=== PATIENT | male | born 1940 | race Caucasian/White ===

== ENCOUNTER 2017-08-15 10:11 | Emergency (ER) | payer MEDICARE ==
--- NOTE | 2017-08-15 10:27 | RADIOLOGY REPORT (SQ) ---
EXAM DESCRIPTION: CT HEAD WITHOUT COMPLETED DATE/TIME: 08/15/2017 10:20 am REASON FOR STUDY: altered mental status COMPARISON: None. TECHNIQUE: Axial images acquired through the brain without intravenous contrast. Images reviewed wi th bone, brain and subdural windows. Images stored on PACS. All CT scanners at this facility use dose modulation, iterative reconstruction, and/or weight based d osing when appropriate to reduce radiation dose to as low as reasonably achievable (ALARA). [facility]: Dose Right [facility]: CareDose [facility]: Dose Right [facility]: Teradose 4D [facility]: [employer] RADIATION DOSE: CT Rad equipment meets quality standard of care and radiation dose reduction techniq ues were employed. CTDIvol: 64.6 mGy. DLP: 1163 mGy-cm. mGy. LIMITATIONS: None. FINDINGS: VENTRICLES: Prominent. CEREBRUM: No masses. No hemorrhage. No midline shift. Areas of low density in the white matter mos t likely due to chronic micro-vascular ischemic change. No evidence for acute infarction. CEREBELLUM: No masses. No hemorrhage. No alteration of density. No evidence for acute infarction. EXTRAAXIAL SPACES: Mild age-related involutional change. No fluid collections. No masses. ORBITS AND GLOBE: No intra- or extraconal masses. Normal contour of globe without masses. CALVARIUM: No fracture. PARANASAL SINUSES: No fluid or mucosal thickening. SOFT TISSUES: No mass or hematoma. OTHER: No other significant finding. IMPRESSION: MILD CHRONIC CHANGES OF ATROPHY AND MICROVASCULAR ISCHEMIA. NO ACUTE PROCESS. EVIDENCE OF ACUTE STROKE: NO. TECHNICAL DOCUMENTATION: JOB ID: [id number] Quality ID # [id number]: Final reports with documentation of one or more dose reduction techniques (e.g., Au tomated exposure control, adjustment of the mA and/or kV according to patient size, use of iterative reconstruction technique) 2010 [employer]- All Rights Reserved
[2017-08-15 10:53] LABS: ABSOLUTE EOSINOPHILS # (AUTO) 0.3 10^3/uL (0.0-0.6); ABSOLUTE LYMPHOCYTES (AUTO) 2.2 10^3/uL (0.5-4.7); BASOPHILS % (AUTO) 0.4 % (0-2); EOSINOPHILS % (AUTO) 2.7 % (0-6); HEMATOCRIT 43.3 % (37.9-51.0); HEMOGLOBIN 14.4 g/dL (13.5-17.0); HGB HCT DIFFERENCE -0.1; LYMPHOCYTES % (AUTO) 19.3 % (13-45); MEAN CORPUSCULAR HEMOGLOBIN 30.3 pg (27.0-33.4); MEAN CORPUSCULAR HGB CONC 33.3 g/dL (32.0-36.0); MEAN CORPUSCULAR VOLUME 91 fl (80-97); MONOCYTES % (AUTO) 8.6 % (3-13); RED BLOOD COUNT 4.77 10^6/uL (4.35-5.55); RED CELL DISTRIBUTION WIDTH 14.8 % (11.5-14.0); WHITE BLOOD COUNT 11.7 10^3/uL (4.0-10.5)
[2017-08-15 10:54] LABS: VENOUS BLOOD BASE EXCESS 2.9 mmol/L; VENOUS BLOOD HCO3 29.4 mmol/L (20-32); VENOUS BLOOD PCO2 52.7 mmHg (35-63); VENOUS BLOOD PH 7.37 (7.30-7.42)
[2017-08-15 11:02] LABS: PROTHROMBIN TIME 13.2 SEC (11.4-15.4)
[2017-08-15 11:03] LABS: APPEARANCE,URINE SLIGHTLY-CLOUDY; BILIRUBIN,URINE NEGATIVE (NEGATIVE); GLUCOSE, URINE NEGATIVE (NEGATIVE); KETONES,URINE NEGATIVE (NEGATIVE); LEUKOCYTE ESTERASE,URINE NEGATIVE (NEGATIVE); NITRITE,URINE NEGATIVE (NEGATIVE); PROTEIN,URINE 30 mg/dL (NEGATIVE)
[2017-08-15 11:08] LABS: ALANINE AMINOTRANSFERASE 38 U/L (21-72); ALKALINE PHOSPHATASE 59 U/L (38-126); ANION GAP 11 (5-19); ASPARTATE AMINO TRANSFERASE 22 U/L (17-59); BILIRUBIN,DIRECT 0.1 mg/dL (0.0-0.4); BILIRUBIN,TOTAL 0.3 mg/dL (0.2-1.3); BLOOD UREA NITROGEN 24 mg/dL (7-20); CALCIUM 9.3 mg/dL (8.4-10.2); CARBON DIOXIDE 29 mmol/L (22-30); CHLORIDE 100 mmol/L (98-107); CREATINE KINASE 136 U/L (55-170); CREATININE RESULT 1.19 mg/dL (0.52-1.25); GLUCOSE 165 mg/dL (75-110); SODIUM 139.5 mmol/L (137-145); TOTAL PROTEIN 6.5 g/dL (6.3-8.2)
[2017-08-15 11:20] LABS: CREATINE KINASE MB 1.08 ng/mL (<4.55)
[2017-08-15 11:22] LABS: TROPONIN I < 0.012 ng/mL
[2017-08-15 11:31] LABS: URINE BARBITURATES SCREEN NEGATIVE; URINE METHADONE SCREEN NEGATIVE; URINE OPIATES LOW NEGATIVE; URINE PHENCYCLIDINE SCREEN NEGATIVE
--- NOTE | 2017-08-15 11:43 | ER Document Report ---
ED General - General Chief Complaint: Altered Mental Status Stated Complaint: ALTERED MENTAL STATUS Time Seen by Provider: 08/15/17 10:13 Mode of Arrival: Medic Information source: Emergency Med Personnel Cannot obtain history due to: Altered mental status Notes: 76-year-old male presents from home unresponsive with EMS concern for stroke. Patient is noted to be minimally responsive family noted that patient was fine an hour prior to this presentation. On arrival patient is noted to be only responsive to painful stimuli TRAVEL OUTSIDE OF THE [place] IN LAST 30 DAYS: No - HPI Onset: Just prior to arrival Onset/Duration: Sudden Quality of pain: No pain Severity: Severe Pain Level: Denies Associated symptoms: Other Exacerbated by: Denies Relieved by: Denies Similar symptoms previously: No Recently seen / treated by doctor: No - Related Data Home Medications: Current Home Medications Allopurinol [Zyloprim 100 mg Tablet] 100 mg PO DAILY 08/15/17 [History] Alprazolam 0.5 mg PO DAILY PRN 08/15/17 [History] Aspirin [Aspirin 325 mg Tablet] 325 mg PO DAILY 08/15/17 [History] Bupropion HCl [Bupropion Xl] 150 mg PO DAILY 08/15/17 [History] Cyclobenzaprine HCl 5 mg PO TID 08/15/17 [History] Folic Acid 1 mg PO DAILY 08/15/17 [History] Methotrexate Sodium [Methotrexate] 2.5 mg PO DAILY 08/15/17 [History] Multivitamin [Daily Multiple Vitamin] 1 each PO DAILY 08/15/17 [History] Oxycodone HCl 5 mg PO Q6HP PRN 08/15/17 [History] Pantoprazole Sodium [Protonix] 40 mg PO DAILY 08/15/17 [History] Primidone [Mysoline 50 Mg Tablet] 50 mg PO HSP PRN 08/15/17 [History] Rosuvastatin Calcium 20 mg PO DAILY 08/15/17 [History] Past Medical History - Social History Smoking Status: Former Smoker Cigarette use (# per day): No Chew tobacco use (# tins/day): No Smoking Education Provided: No Frequency of alcohol use: Occasional Drug Abuse: Marijuana, Other Family History: Reviewed & Not Pertinent Patient has suicidal ideation: No Patient has homicidal ideation: No Renal/ Medical History: Denies: Hx Peritoneal Dialysis Review of Systems - Review of Systems Notes: REVIEW OF SYSTEMS: CONSTITUTIONAL : Denies fever, chills, or sweats. Denies recent illness. EENT: Denies eye, ear, throat, or mouth pain or symptoms. Denies nasal or sinus congestion or discharge. Denies throat, tongue, or mouth swelling or difficulty swallowing. CARDIOVASCULAR: Denies chest pain. Denies palpitations or racing or irregular heart beat. Denies ankle edema. RESPIRATORY: Denies cough, cold, or chest congestion. Denies shortness of breath, difficulty breathing, or wheezing. GASTROINTESTINAL: Denies abdominal pain or distention. Denies nausea, vomiting , or diarrhea. Denies blood in vomitus, stools, or per rectum. Denies black, tarry stools. Denies constipation. GENITOURINARY: Denies difficulty urinating, painful urination, burning, frequency, blood in urine, or discharge. MUSCULOSKELETAL: Denies back or neck pain or stiffness. Denies joint pain or swelling. SKIN: Denies rash, lesions or sores. HEMATOLOGIC : Denies easy bruising or bleeding. LYMPHATIC: Denies swollen, enlarged glands. NEUROLOGICAL: Patient minimally responsive PSYCHIATRIC: Denies anxiety or stress. Denies depression, suicidal ideation, or homicidal ideation. ALL OTHER SYSTEMS REVIEWED AND NEGATIVE. Dictation was performed using [employer] voice recognition software PHYSICAL EXAMINATION: GENERAL: Well-appearing, well-nourished and in no acute distress. GCS 9 HEAD: Atraumatic, normocephalic. EYES: Pupils equal round and reactive to light, extraocular movements intact, sclera anicteric, conjunctiva are normal. ENT: Nares patent, oropharynx clear without exudates. Moist mucous membranes. NECK: Normal range of motion, supple without lymphadenopathy LUNGS: Breath sounds clear to auscultation bilaterally and equal. No wheezes rales or rhonchi. HEART: Regular rate and rhythm without murmurs ABDOMEN: Soft, nontender, nondistended abdomen. No guarding, no rebound. No masses appreciated. Musculoskeletal: Normal range of motion, no pitting or edema. No cyanosis. NEUROLOGICAL: Patient initially only responsive to painful stimuli, sternal rub performs patient grabbed my hand PSYCH: Normal mood, normal affect. SKIN: Warm, Dry, normal turgor, no rashes or lesions noted. Physical Exam - Vital signs Vitals: Pulse 64 08/15/17 10:12 Course - Re-evaluation Re-evalutation: On arrival initial concern for a CVA or other encephalopathy causing abnormality. Patient was almost intubated but was protecting his airway at the painful stimuli was performed. CT emergently performed noted no acute abnormality patient will be watched 08/15/17 11:43 pt continues to be altered, responds to pain stimuli 08/15/17 11:56 Patient is now awake alert oriented, MRI has been ordered to rule out a CVA 08/15/17 16:49 Patient when he returns from MRI is completely alert oriented both he and admit that he took 3 drops ofCBD oil prior to presentation for tremors and has never done this before. Given that MRI lab work imaging otherwise is all negative and patient's symptoms have completely resolved I discussed presentation with who agrees that is probably secondary to this oil I will discharge home with very close follow-up After performing a Medical Screening Examination, I estimate there is LOW risk for ACUTE GLAUCOMA, TEMPORAL ARTERITIS, MENINGITIS, INCRANIAL HEMORRHAGE, or ISCHEMIC STROKE thus I consider the discharge disposition reasonable. I have reevaluated this patient multiple times and no significant life threatening changes are noted. The patient and I have discussed the diagnosis and risks, and we agree with discharging home with close follow-up with the understanding that symptoms and presentations can change. We also discussed returning to the Emergency Department immediately if new or worsening symptoms occur. We have discussed the symptoms which are most concerning (e.g., changing or worsening symptoms, new numbness or weakness, vomiting, fever) that necessitate immediate return. - Vital Signs Vital signs: Temp Pulse Resp BP Pulse Ox 75 17 102/72 96 08/15/17 14:15 08/15/17 14:15 08/15/17 14:15 08/15/17 14:15 - Laboratory Result Diagrams: 08/15/17 10:25 08/15/17 10:25 Laboratory results interpreted by me: 08/15/17 08/15/17 08/15/17 10:25 10:25 10:27 WBC 11.7 H RDW 14.8 H BUN 24 H Glucose 165 H POC Glucose 153 H Urine Protein Urine Urobilinogen Urine Ascorbic Acid 08/15/17 10:45 WBC RDW BUN Glucose POC Glucose Urine Protein 30 H Urine Urobilinogen 2.0 H Urine Ascorbic Acid 20 H - Diagnostic Test Radiology reviewed: Image reviewed, Reports reviewed - EKG Interpretation by Me EKG shows normal: Sinus rhythm, [place], Intervals, QRS Complexes Discharge - Discharge Clinical Impression: Altered mental status Qualifiers: Altered mental status type: unspecified Qualified Code(s): R41.82 - Altered mental status, unspecified Overdose Qualifiers: Encounter type: initial encounter Injury intent: accidental or unintentional Qualified Code(s): T50.901A - Poisoning by unspecified drugs, medicaments and biological substances, accidental (unintentional), initial encounter Condition: Stable Disposition: HOME, SELF-CARE Instructions: Instructions for Home Care Following a Drug Overdose ([facility]) Referrals: EDWIN BARRETT MD [Primary Care Provider] - Follow up tomorrow
--- NOTE | 2017-08-15 11:51 | RADIOLOGY REPORT (SQ) ---
EXAM DESCRIPTION: CHEST SINGLE VIEW COMPLETED DATE/TIME: 08/15/2017 11:43 am REASON FOR STUDY: AMS COMPARISON: None. NUMBER OF VIEWS: One view. TECHNIQUE: Single frontal radiographic view of the chest acquired. LIMITATIONS: None. FINDINGS: LUNGS AND PLEURA: Low lung volumes. No opacities, masses or pneumothorax. No pleural eff usion. MEDIASTINUM AND HILAR STRUCTURES: No masses. No contour abnormality. HEART AND VASCULAR STRUCTURES: Normal size. No evidence for failure. BONES: No acute findings. HARDWARE: None in the chest. OTHER: No other significant finding. IMPRESSION: LOW LUNG VOLUMES. NO SIGNIFICANT RADIOGRAPHIC FINDING IN THE CHEST. TECHNICAL DOCUMENTATION: JOB ID: [id number] [employer]- All Rights Reserved
--- NOTE | 2017-08-15 13:42 | RADIOLOGY REPORT (SQ) ---
EXAM DESCRIPTION: MRI HEAD COMBO COMPLETED DATE/TIME: 08/15/2017 1:33 pm REASON FOR STUDY: altered mental status COMPARISON: Head CT from 08/15/2017 TECHNIQUE: Multiplanar imaging includes noncontrasted T1, T2, FLAIR, and Diffusion with ADC map seq uences. Contrast enhanced T1 images. Images stored on PACS. CONTRAST TYPE AND DOSE: 10 mL Multihance. RENAL FUNCTION: GFR > 60. LIMITATIONS: None. FINDINGS: ANATOMY: No anomalies. Normal vascular flow voids. Pituitary fossa normal. CSF SPACES: Normal size and contour. No hemorrhage. CEREBRUM: A few high-signal intensity lesions scattered throughout the white matter on FLAIR imaging with distribution suggesting chronic microvascular ischemic change. Sulci and gyri normal in size and contour. No evidence of hemorrhage, mass or extraaxial fluid collection. No enhancing lesions. POSTERIOR FOSSA: No signal alteration. No hemorrhage. No edema, masses or mass effect. Internal audit ory canals, cerebello-pontine angles, mastoids normal. DIFFUSION: Negative for acute or subacute infarction. ORBITS: No masses. Globes normal. PARANASAL SINUSES: No fluid levels. Mucosa normal. OTHER: No other significant finding. IMPRESSION: NO ENHANCING LESIONS. MINIMAL MICROVASCULAR ISCHEMIC CHANGE. OTHERWISE NORMAL STUDY. EVIDENCE OF ACUTE STROKE: NO. TECHNICAL DOCUMENTATION: JOB ID: [id number] [employer]- All Rights Reserved
[2017-08-15 14:19] VITALS: BP 102/72
--- NOTE | 2017-08-15 18:14 | EKG REPORT ---
SEVERITY:- BORDERLINE ECG - SINUS RHYTHM NONSPECIFIC ST-T CHANGES- INFERIOR LEADS : Confirmed by: Laith Wesley MD 15-Aug-2017 18:13:43
== END 2017-08-15 14:41 | disposition home or self-care (01) ==
LOC: ER 10:11
DX: T50.901A Poisoning by unspecified drugs, medicaments and biological substances, accidental (unintentional), initial encounter (principal); R25.1 Tremor, unspecified; Z87.891 Personal history of nicotine dependence
CPT/HCPCS: 93005; 99285; 51701; 51702; 36415; 87040; 87086; 82553; 82962; 82550; 85025; 85610; 80053; 81001; 84484; 80307; 82803; 83605; 70553; 71010; 70450; 93010; A9577

== ENCOUNTER 2018-05-10 15:35 | Emergency (ER) | payer MEDICARE ==
[2018-05-10 16:05] VITALS: BP 144/78
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
[2018-05-10] MEDS ORDERED: CEPHALEXIN 500 MG CAPSULE PO ONE (18:26)
[2018-05-10] MEDS ORDERED: DIPH/PERTUSS(ACELL)/TETANUS VAC/PF 0.5 ML SYR (>=10YO) IM ONE (18:29)
[2018-05-10] MEDS ORDERED: METHOCARBAMOL 750 MG TABLET PO ONE (18:31)
== END 2018-05-10 18:55 | disposition home or self-care (01) ==
LOC: ER 15:35
DX: S16.1XXA Strain of muscle, fascia and tendon at neck level, initial encounter (principal); S01.81XA Laceration without foreign body of other part of head, initial encounter; W20.8XXA Other cause of strike by thrown, projected or falling object, initial encounter
CPT/HCPCS: 99283; 90715; A9270 ×2; J3490

== ENCOUNTER → 2019-02-10 | Outpatient (CLI) | payer MEDICARE ==
--- NOTE | 2019-02-10 16:42 | RADIOLOGY REPORT (SQ) ---
EXAM DESCRIPTION: MRI CERVICAL SPINE WITHOUT COMPLETED DATE/TIME: 02/10/2019 3:42 pm REASON FOR STUDY: M54.2 CERVICALGIA M54.2 CERVICALGIA R29.898 OT SYMPTOMS AND SIGNS INVOLVING THE MUSCULOSKELETAL COMPARISON: None. TECHNIQUE: Sagittal and Axial imaging includes T1, T2, STIR and gradient echo sequences. LIMITATIONS: None. FINDINGS: ALIGNMENT: Normal. VERTEBRAE: Intact. BONE MARROW: Normal. No marrow replacement or reactive changes. DISCS: Diffuse disc space loss of height. Diffuse decreased T2 weighted intervertebral disc signal HARDWARE: None in the spine. CORD AND BASE OF BRAIN: Normal in size and signal intensity. SOFT TISSUES: No soft tissue masses. C1-C2: No significant spinal stenosis. C2-C3: No significant spinal stenosis or exit foraminal stenosis. C3-C4: Broad diffuse posterior disc bulge and bony spurring is present, partially effacing the ventra l thecal sac and abutting the ventral cord without cord flattening or abnormal intrinsic cord signal. Moderate to high-grade bilateral foraminal narrowing from facet and uncovertebral hypertrophy C4-C5: Broad diffuse posterior disc bulge and bony spurring partially effaces the ventral thecal sac and abuts the ventral cord without cord flattening or abnormal intrinsic cord signal. Mild central c anal narrowing. High-grade right, moderate to high-grade left foraminal narrowing from facet and unc overtebral hypertrophy C5-C6: Minimal posterior disc bulge and bony spurring is present. No significant central canal or fo raminal narrowing. C6-C7: Mild left facet hypertrophy. No central or foraminal encroachment. C7-T1: No significant spinal stenosis or exit foraminal stenosis. UPPER THORACIC: Incompletely imaged. No significant spinal stenosis or exit foraminal stenosis. OTHER: No other significant finding. IMPRESSION: Degenerative disc changes with foraminal narrowing most pronounced at C3-4 and C4-5 TECHNICAL DOCUMENTATION: JOB ID: [id number] [employer]- All Rights Reserved Reading location - IP/workstation name: [email or web address]
== END ==
LOC: RAD 14:44
PROVIDERS: ATTEND Internal Medicine
DX: M50.31 Other cervical disc degeneration, high cervical region (principal); M48.02 Spinal stenosis, cervical region; R29.898 Other symptoms and signs involving the musculoskeletal system
CPT/HCPCS: 72141

== ENCOUNTER 2019-05-27 14:05 | Emergency (ER) | payer MEDICARE ==
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
[2019-05-27 15:45] LABS: APPEARANCE,URINE CLEAR; BILIRUBIN,URINE NEGATIVE (NEGATIVE); COLOR,URINE YELLOW; GLUCOSE, URINE NEGATIVE (NEGATIVE); KETONES,URINE NEGATIVE (NEGATIVE); LEUKOCYTE ESTERASE,URINE NEGATIVE (NEGATIVE); NITRITE,URINE NEGATIVE (NEGATIVE); PROTEIN,URINE NEGATIVE (NEGATIVE); URINE SPECIFIC GRAVITY 1.025; UROBILINOGEN,URINE NEGATIVE mg/dL (<2.0)
[2019-05-27 15:46] LABS: ABSOLUTE BASOPHILS # (AUTO) 0.1 10^3/uL (0.0-0.2); ABSOLUTE EOSINOPHILS # (AUTO) 0.8 10^3/uL (0.0-0.6); ABSOLUTE LYMPHOCYTES (AUTO) 2.2 10^3/uL (0.5-4.7); ABSOLUTE MONOCYTES (AUTO) 1.6 10^3/uL (0.1-1.4); ABSOLUTE NEUT (AUTO) 6.4 10^3/uL (1.7-8.2); BASOPHILS % (AUTO) 0.7 % (0-2); EOSINOPHILS % (AUTO) 7.7 % (0-6); HEMATOCRIT 43.6 % (37.9-51.0); HEMOGLOBIN 14.6 g/dL (13.5-17.0); LYMPHOCYTES % (AUTO) 19.6 % (13-45); MEAN CORPUSCULAR HEMOGLOBIN 30.7 pg (27.0-33.4); MEAN CORPUSCULAR HGB CONC 33.5 g/dL (32.0-36.0); MEAN CORPUSCULAR VOLUME 92 fl (80-97); MONOCYTES % (AUTO) 14.1 % (3-13); PLATELET COUNT 199 10^3/uL (150-450); RED BLOOD COUNT 4.76 10^6/uL (4.35-5.55); RED CELL DISTRIBUTION WIDTH 14.4 % (11.5-14.0); SEGMENTED NEUTROPHILS % (AUTO) 57.9 % (42-78); TOTAL CELLS COUNTED % (AUTO) 100 %; WHITE BLOOD COUNT 11.1 10^3/uL (4.0-10.5)
[2019-05-27 16:01] LABS: ALBUMIN 4.6 g/dL (3.5-5.0); ALKALINE PHOSPHATASE 59 U/L (38-126); ANION GAP 10 (5-19); ASPARTATE AMINO TRANSFERASE 25 U/L (17-59); BILIRUBIN,DIRECT 0.2 mg/dL (0.0-0.4); BILIRUBIN,TOTAL 0.6 mg/dL (0.2-1.3); BLOOD UREA NITROGEN 22 mg/dL (7-20); CALCIUM 9.7 mg/dL (8.4-10.2); CARBON DIOXIDE 33 mmol/L (22-30); CHLORIDE 97 mmol/L (98-107); GLUCOSE 96 mg/dL (75-110); POTASSIUM 4.9 mmol/L (3.6-5.0); TOTAL PROTEIN 7.4 g/dL (6.3-8.2)
--- NOTE | 2019-05-27 18:00 | ER Document Report ---
HPI - HPI Time Seen by Provider: 05/27/19 14:56 Pain Level: 5 Notes: This is a 78-year-old male presenting to the emergency department with chief complaint of chronic low back pain. Patient reports he has a known lumbar bulging disc. Patient reports that he would like to have an MRI done today to "help expedite his care". Patient has no loss of control of his bowel or bladder, no urinary retention and no saddle anesthesia. He otherwise feels well and has not had a fever. - REPRODUCTIVE Reproductive: DENIES: : Past Medical History - General Information source: Patient - Social History Smoking Status: Unknown if Ever Smoked Chew tobacco use (# tins/day): No Frequency of alcohol use: None Drug Abuse: None Family History: Reviewed & Not Pertinent Patient has suicidal ideation: No Patient has homicidal ideation: No Pulmonary Medical History: Reports: Hx Bronchitis, Hx COPD, Hx Pneumonia Renal/ Medical History: Denies: Hx Peritoneal Dialysis Past Surgical History: Reports: Hx Appendectomy Vertical Provider Document - CONSTITUTIONAL Notes: PHYSICAL EXAMINATION: GENERAL: Well-appearing, well-nourished and in no acute distress. HEAD: Atraumatic, normocephalic. EYES: Pupils equal round extraocular movements intact, conjunctiva are normal. ENT: Nares patent NECK: Normal range of motion LUNGS: No respiratory distress Musculoskeletal: Normal range of motion, mild tenderness along the midline in the lumbar region without step-off or deformity, tenderness over the lumbar paraspinous muscles on the right side. NEUROLOGICAL: Normal speech, normal gait. PSYCH: Normal mood, normal affect. SKIN: Warm, Dry, normal turgor, no rashes or lesions noted. - INFECTION CONTROL TRAVEL OUTSIDE OF THE [place] IN LAST 30 DAYS: No Course - Re-evaluation Re-evalutation: Presentation of a well appearing patient complaining of acute on chronic back pain. No rapid progression of symptoms, systemic symptoms including fevers, chills, weight loss, history of recent bacterial infection, bilateral symptoms, numbness, weakness, difficulty walking, urinary retention or bowel incontinence, personal history of cancer, immunosuppression, diabetes, or known AAA. Exam is without point tenderness over vertebral bodies, pulsatile abdominal mass, and patient has symmetric and intact lower extremity strength, sensation, and reflexes without clonus. 2+ symmetric medial malleolar and dorsalis pedis pulses. Offered MRI for patient but explained to patient that because he has no red flag symptoms for any life-threatening pathology that likely this would not be covered by his insurance. Patient does not want an MRI at this time, he states he will follow-up with his neurosurgeon and go through the appropriate channels to have the MRI done. Patient offered medication management for his back pain, he states he Vikram has this set up through his neurologist. Patient will be discharged home in stable condition. - Vital Signs Vital signs: Temp Pulse Resp BP Pulse Ox 97.9 F 70 18 143/80 H 97 05/27/19 14:10 05/27/19 14:10 05/27/19 14:10 05/27/19 14:10 05/27/19 14:10 - Laboratory Result Diagrams: 05/27/19 15:15 05/27/19 15:15 Laboratory results interpreted by me: 05/27/19 05/27/19 15:15 15:15 WBC 11.1 H RDW 14.4 H [place] % (Auto) 14.1 H Eos % (Auto) 7.7 H Absolute Monos (auto) 1.6 H Absolute Eos (auto) 0.8 H Chloride 97 L Carbon Dioxide 33 H BUN 22 H Est GFR (MDRD) Non-Af 57 L Discharge - Discharge Clinical Impression: Low back pain Qualifiers: Chronicity: chronic Back pain laterality: midline Sciatica presence: with sciatica Sciatica laterality: sciatica laterality unspecified Qualified Code(s): M54.40 - Lumbago with sciatica, unspecified side Condition: Stable Disposition: HOME, SELF-CARE Additional Instructions: Please keep the appointments that you have scheduled with your primary care doctor. Take all medications as prescribed by your orthopedic doctor. Return to the emergency department for any new or worsening symptoms to include loss of control of your bowel movements or bladder, urinary retention or unilateral weakness. Referrals: EDWIN BARRETT MD [Primary Care Provider] - Follow up as needed
[2019-05-27 18:06] VITALS: BP 162/80
== END 2019-05-27 18:06 | disposition home or self-care (01) ==
LOC: ER 14:05
DX: M54.40 Lumbago with sciatica, unspecified side (principal); G89.29 Other chronic pain
CPT/HCPCS: 36415; 80053; 81001; 85025; 99283